=== PATIENT | male | born 1970 | race Caucasian/White ===

== ENCOUNTER 2018-06-10 15:22 | Emergency (ER) | payer SELFPAY ==
[~2018-06-10] VITALS: Ht 188 cm; Wt 147.4 kg
[2018-06-10 16:14] VITALS: BP 120/73
[2018-06-10] MEDS ORDERED: KETOROLAC TROMETH 60MG/2ML VIAL IM ONE (17:00)
== END 2018-06-10 17:37 | disposition home or self-care (01) ==
LOC: ER 15:33
DX: S90.821A Blister (nonthermal), right foot, initial encounter (principal); S90.822A Blister (nonthermal), left foot, initial encounter; L84 Corns and callosities; J40 Bronchitis, not specified as acute or chronic; I11.0 Hypertensive heart disease with heart failure; I50.9 Heart failure, unspecified; J44.9 Chronic obstructive pulmonary disease, unspecified; F17.210 Nicotine dependence, cigarettes, uncomplicated; X58.XXXA Exposure to other specified factors, initial encounter; Y93.89 Activity, other specified; Y99.8 Other external cause status; Y92.89 Other specified places as the place of occurrence of the external cause
CPT/HCPCS: 96372

== ENCOUNTER 2018-08-10 17:02 | Emergency (ER) | payer SELFPAY ==
[~2018-08-10] VITALS: Ht 185.4 cm; Wt 147.4 kg
[2018-08-10 18:15] VITALS: BP 132/93
[2018-08-10] MEDS ORDERED: IPRATROPIUM BROM 0.5 MG/2.5ML INH SOL NEB ONE (19:30)
[2018-08-10] MEDS ORDERED: ALBUTEROL SULF 2.5 MG/0.5ML(0.5%) NEB SOLN NEB ONE (19:30)
[2018-08-10] MEDS ORDERED: methylPREDNISolone SOD SUCC 125 MG/2 ML VL IM ONE (19:30)
== END 2018-08-10 20:29 | disposition home or self-care (01) ==
LOC: ER 17:02
DX: J40 Bronchitis, not specified as acute or chronic (principal); J44.9 Chronic obstructive pulmonary disease, unspecified; I11.0 Hypertensive heart disease with heart failure; I50.9 Heart failure, unspecified
CPT/HCPCS: 71046; 94640; 96372; 99283; J2930; J7611; J7644